=== PATIENT | female | born 1960 | race African-American/Black ===

== ENCOUNTER 2017-08-06 05:42 | Inpatient (IN) ==
[2017-08-04 09:25] LABS: Basophils % 0.5 % (0.0-0.8); Eosinophils # 0.1 10*3/uL (0.0-0.87); Eosinophils % 2.3 % (0.00-10.9); Hematocrit 40.2 VOL% (35.7-47.0); Hemoglobin 13.7 GM/DL (12.0-16.0); Immature Granulocytes % 0.3 %; Immature Granulocytes Absolute 0.01 #; Lymphocytes # 1.2 10*3/uL (1.4-4.0); Lymphocytes % 29.8 % (21.3-54.2); Mean Corpuscular HGB Conc 34.1 GM/DL (32-36); Mean Corpuscular Hemoglobin 29 PG (27-34); Mean Corpuscular Volume 84.8 FL (87-102); Mean Platelet Volume 9.5 FL (9.6-12.0); Monocytes # 0.6 10*3/uL (0.11-0.8); Neutrophils # 2.1 10*3/uL (1.4-7.4); Neutrophils % 53.1 % (38.7-73.9); Platelet Count 249 T/CUMM (130-400); Red Blood Count 4.74 MC/CUMM (3.8-5.5); Red Cell Distribution Width 12.1 % (9.3-17.3); White Blood Count 3.9 T/CUMM (4-12)
[2017-08-04 09:35] LABS: PT Patient Result 10.6 SECS; Partial Thromboplastin Time 26.8 SECS (0-40)
[2017-08-04 09:38] LABS: Apearance,Urine CLOUDY (Clear); Bilirubin,Urine Negative (Negative); Blood, Urine Negative (Negative); Glucose,Urine (UA) Negative (Negative); Ketones,Urine Negative (Negative); Mucus,Urine Many /LPF (Occasional); Nitrite,Urine Negative (Negative); Protein,Urine Negative; Squamous Epithelial Cell,Urine Few /HPF (0-10); Urine Color Yellow (Yellow); Urine Specific Gravity 1.026 (1.001-1.035); Urine Urobilinogen < 2.0 EU/DL (0.2-1.0); WBC,Urine 2 /HPF (0-6)
[2017-08-04 10:00] LABS: Calcium 8.9 MG/DL (8.5-10.1); Osmolality,Calculated 279.4 MOS/KG (273-304); Potassium 3.7 MMOL/L (3.5-5.1)
--- NOTE | 2017-08-04 10:14 | Order Completion Report ---
See report scanned to EMR
--- NOTE | 2017-08-04 10:42 | XRay Report ---
Exam: XR chest 2V Date: 08/04/2017 9:07 AM Indication: Respiratory Preoperative evaluation of the chest Comparison: 08/24/2015 Technical: PA lateral Findings: The heart is normal in size. Minimal vascular plaque in the aorta. No obvious infiltrates or effusions present. Mediastinum and bony structures reveal no acute findings. Impression: 1. No acute cardiopulmonary pathology radiographically with underlying ASVD. PROCEDURE INTERPRETED AT [facility] DEPARTMENT OF RADIOLOGY Final Report Signed by: Dr. Shun Partida
[~2017-08-06 05:42] MED LIST: ACETAMINOPHEN INJ 1,000 MG in PREMIX 1 EACH IV ONE; BUPIVACAINE LIPOSOMAL 20 ML/266 MG VIAL MISC INJ ONE; CEFUROXIME INJ 1,500 MG in SODIUM CHLORIDE 0.9% 50 ML IV ONE; SODIUM CHLORIDE 0.9% 250 ML IV PRN
[2017-08-06] MEDS ORDERED: FAMOTIDINE 20 MG TABLET ONE (05:59)
[2017-08-06] MEDS ORDERED: LORazepam 1 MG TABLET ONE (05:59)
[2017-08-06] MEDS ORDERED: SODIUM CHLORIDE 0.9% 50 ML IV ONE (05:59)
[2017-08-06] MEDS ORDERED: CEFUROXIME 1,500 MG VIAL ONE (05:59)
[2017-08-06] MEDS ORDERED: ALBUTEROL 2.5 MG/3 ML NEB RESP TX ONE (06:00)
[2017-08-06] MEDS ORDERED: IPRATROPIUM 500 MCG/2.5 ML NEB RESP TX ONE (06:00)
[2017-08-06] MEDS ORDERED: FAMOTIDINE 20 MG TABLET PO ONE (06:00)
[2017-08-06] MEDS ORDERED: LORazepam 1 MG TABLET PO ONE (06:00)
[2017-08-06] MEDS ORDERED: TISSUE ADHESIVE 1 EACH APPLICATOR TOP ONE (06:10)
[2017-08-06] MEDS ORDERED: BUPIVACAINE LIPOSOMAL 20 ML/266 MG VIAL ONE (06:11)
[2017-08-06] MEDS ORDERED: LACTATED RINGERS 1,000 ML IV SCH ×2 (06:30→11:30)
[2017-08-06 08:20] LABS: ABG HCO3 25.3 MMOL/L (20-26); ABG Oxygen Saturation 99.3 % (95-100); ABG PCO2 38.1 MM HG (35-48); ABG PH 7.428 (7.35-7.45); ABG TCO2 22.5 MMOL/L (23-27)
[2017-08-06] MEDS ORDERED: hydrALAZINE 20 MG/1 ML VIAL ONE (10:27)
[2017-08-06] MEDS ORDERED: HYDROmorphone 2 MG/1 ML VIAL ONE (10:34)
--- NOTE | 2017-08-06 10:48 | Anesthesia Post-Op ---
Anesthesia Post OP - Post Ansesthetic Evaluation Patient seen in post op: Yes Resp: within normal limits CV: within normal limits Mental: within normal limits Temp: within normal limits Rhlo-Ni-Sgfykmxzh: within normal limits Nausea and Vomiting: within normal limits Pain: within normal limits
[2017-08-06] MEDS ORDERED: SEVOFLURANE 1 UNIT/15 MINUTE INH ONE (10:51)
[2017-08-06] MEDS ORDERED: MIDAZOLAM 2 MG/2 ML VIAL ONE (10:51)
[2017-08-06] MEDS ORDERED: PROPOFOL 200 MG/20 ML VIAL IV ONE (10:51)
[2017-08-06] MEDS ORDERED: DEXAMETHASONE 20 MG/5 ML VIAL ONE (10:52)
[2017-08-06] MEDS ORDERED: fentaNYL 100 MCG/2 ML VIAL ONE (10:52)
[2017-08-06] MEDS ORDERED: VECURONIUM 10 MG VIAL IV ONE (10:52)
[2017-08-06] MEDS ORDERED: GLYCOPYRROLATE 0.4 MG/2 ML VIAL ONE ×2 (10:52)
[2017-08-06] MEDS ORDERED: ACETAMINOPHEN 1,000 MG/100 ML VIAL IV ONE (10:52)
[2017-08-06] MEDS ORDERED: NEOSTIGMINE 10 MG/10 ML VIAL ONE (10:52)
[2017-08-06] MEDS ORDERED: ROCURONIUM 100 MG/10 ML VIAL IV ONE (10:53)
--- NOTE | 2017-08-06 11:11 | XRay Report ---
Portable chest Date: 08/06/2017 Clinical history: Postop thoracotomy Comparison: 08/04/2017 Technique: Portable AP sitting chest Findings: The heart is normal in size with calcification in the aortic knob. Interval left thoracotomy with metallic clips at the level of the left hilum. Left chest tube with tip at left lung apex. No significant pneumothorax is identified. Progressive atelectasis in the lungs with minimal subcutaneous emphysema. Insertion of right IJ CVP line with tip in right atrium. Impression: Interval left thoracotomy with chest tube projecting in the left lung apex. No significant pneumothorax identified with progressive atelectasis in the lungs and minimal subcutaneous emphysema. PROCEDURE INTERPRETED AT [facility] DEPARTMENT OF RADIOLOGY Final Report Signed by: Dr. Eleonora Latif
[2017-08-06] MEDS ORDERED: ONDANSETRON 4 MG/2 ML VIAL IV PRN (11:16)
[2017-08-06] MEDS ORDERED: HYDROmorphone 2 MG/1 ML VIAL IV PRN (11:16)
[2017-08-06 12:07] LABS: ABG Base Excess -1.4 MMOL/L (-2.5-2.5); ABG HCO3 23.2 MMOL/L (20-26); ABG Oxygen Saturation 98.9 % (95-100); ABG PH 7.351 (7.35-7.45); ABG TCO2 21.6 MMOL/L (23-27)
[2017-08-06 12:11] LABS: Basophils % 0.1 % (0.0-0.8); Hemoglobin 12.6 GM/DL (12.0-16.0); Immature Granulocytes % 0.6 %; Immature Granulocytes Absolute 0.06 #; Lymphocytes # 0.8 10*3/uL (1.4-4.0); Lymphocytes % 7.7 % (21.3-54.2); Mean Corpuscular HGB Conc 34.1 GM/DL (32-36); Mean Corpuscular Hemoglobin 29 PG (27-34); Mean Corpuscular Volume 84.5 FL (87-102); Mean Platelet Volume 9.3 FL (9.6-12.0); Monocytes # 0.2 10*3/uL (0.11-0.8); Monocytes % 2.3 % (1.7-12.7); Neutrophils # 9.4 10*3/uL (1.4-7.4); Neutrophils % 89.3 % (38.7-73.9); Platelet Count 210 T/CUMM (130-400); Red Blood Count 4.38 MC/CUMM (3.8-5.5); Red Cell Distribution Width 12.2 % (9.3-17.3); White Blood Count 10.5 T/CUMM (4-12)
[2017-08-06 12:34] LABS: Calcium 7.7 MG/DL (8.5-10.1); Osmolality,Calculated 277.8 MOS/KG (273-304); Potassium 3.5 MMOL/L (3.5-5.1)
[2017-08-06] MEDS ORDERED: INFLUENZA VIRUS VACCINE 0.5 ML SYRINGE IM ONE (12:47)
--- NOTE | 2017-08-06 12:58 | Operative Note ---
Date of procedure: 08/06/17 Pre-op diagnosis: Left upper lobe lung lesion highly suspicious for cancer Post-op diagnosis: same Procedure: Procedure: 1. Bronchoscopy 2. left video-assisted thoracoscopy 3. Injection of liposomal bupivacaine with intercostal nerve blocks levels 2, 3 , 4, 5, 6, 7, 8 4. left upper lobectomy Findings: This is a 56-year-old female who was having cough. During the workup she was found to have left upper lobe lesion. A PET scan showed this lesion to be avid for FDG. I reviewed this PET scan with the patient in details and explained that her options would be to do a needle biopsy with the possibility of false- negative results, to wait and repeat imaging or to obtain tissue diagnosis surgically or to do lobectomy for definitive diagnosis and management. The patient and elected to proceed with full lobectomy as a definitive diagnosis and management option. VATS left upper lobectomy was performed without any problems. I noted the area of puckering of the lesion to be deep in the parenchyma. Details of the procedure: The patient was brought into the lower placed supine on the OR table and general endotracheal anesthesia was induced without without any problems. Antibiotics were given. Time out was performed The neck and chest were prepped and draped in the usual sterile fashion. The patient was turned and the chest was prepared and draped in sterile fashion. an incision was made over the eighth rib and space was entered bluntly. Survey of the chest didn't show any obvious lesions other than the left upper lobe. The inferior pulmonary ligament was taken down and dissected the hilum all around the lung. The left superior pulmonary vein was identified and encircled with silk stitch. Was created and I used a white load stapler to resect the pulmonary vein. Care was taken to preserve the left lower lobe vein. After that we proceeded with identifying the apical anterior artery. Dissection was carried around the artery. After circling the artery successfully I dissected it using white load. I after that identified the interlobar artery and finished the fissure using linear tissue tate. This was carried all the way down. After that the bronchus was identified and it was tied using load stapler. Another branch of the pulmonary artery was also identified and another white load was used to resect that. The lobe was then handed over after complete resection and then turned my attention to completion of lymph node dissection.. The patient tolerated the procedure well hemostasis was achieved and 1 chest tube were inserted without any problems. The left lower lobes were inflated successfully without any problems. There was no air leak. The patient was extubated and moved to PACU in good condition. Anesthesia: JACKIE Surgeon / Physician: Christopher Cronin Estimated blood loss: other (50) Specimens: other (Left upper lobe with lobar lymph nodes) Condition: stable Disposition: PACU Results - Labs CBC & BMP: 08/06/17 12:00 08/06/17 12:00 Discharge Plan - Discharge Medications No Action Hydroxychloroquine [Plaquenil] 200 mg PO QOTHER DAY Estradiol Tab [Estrace Tab] 1 mg PO DAILY Temazepam [Restoril] 15 mg PO BEDTIME Ranitidine Tab [Zantac Tab] 150 mg PO DAILY Losartan [Cozaar] 50 mg PO DAILY Montelukast Tab [Singulair Tab] 10 mg PO BEDTIME Citalopram [CeleXA] 20 mg PO DAILY Omeprazole [Prilosec] 20 mg PO DIRECTED PRN PRN Reason: Reflux Albuterol Sulfate [Proair HFA] 2 puff INH Q4H PRN PRN Reason: Shortness Of Breath/Wheezing Codeine Phosphate/Guaifenesin [Guaifenesin-Codeine Syrup] 10 ml PO DIRECTED PRN PRN Reason: Cough predniSONE TAB [PredniSONE] 10 mg PO QOTHER DAY Calcium (Carb)/Vit D 500-200 [Oscal 500 + D] 1 tablet PO BID Flunisolide [Aerospan] 5.1 gm IH DAILY - Follow Up or Referral - Forms/Instructions
[2017-08-06] MEDS: KETOROLAC 15 MG/1 ML VIAL IV SCH ×3 (13:40→21:09)
[2017-08-06] MEDS: POTASSIUM CHLORIDE INJ 10 MEQ in SODIUM CHLORIDE 0.45% 1,000 ML IV SCH (15:14)
[2017-08-06] MEDS: GABAPENTIN 100 MG CAPSULE PO SCH ×2 (15:16→21:09)
[2017-08-06] MEDS: ACETAMINOPHEN INJ 1,000 MG in PREMIX 1 EACH IV SCH ×2 (18:00→21:08)
[2017-08-06] MEDS: CEFUROXIME INJ 1,500 MG in SODIUM CHLORIDE 0.9% 100 ML IV SCH (18:20)
[2017-08-06] MEDS ORDERED: NALOXONE 0.4 MG/ML VIAL IV PRN (22:03)
[2017-08-06] MEDS: HYDROmorphone PCA 30 MG/30 ML SYRINGE IV SCH (23:15)
[2017-08-07] MEDS: POTASSIUM CHLORIDE INJ 10 MEQ in SODIUM CHLORIDE 0.45% 1,000 ML IV SCH ×3 (00:18→14:38)
[2017-08-07] MEDS: KETOROLAC 15 MG/1 ML VIAL IV SCH ×4 (04:08→21:54)
[2017-08-07] MEDS: ACETAMINOPHEN 500 MG TABLET PO SCH ×5 (04:08→21:54)
[2017-08-07] MEDS: ENOXAPARIN 40 MG/0.4 ML SYRINGE SUBCUT SCH (04:08)
[2017-08-07 04:25] LABS: Basophils % 0.1 % (0.0-0.8); Hematocrit 32.3 VOL% (35.7-47.0); Hemoglobin 11.2 GM/DL (12.0-16.0); Immature Granulocytes % 0.3 %; Immature Granulocytes Absolute 0.04 #; Lymphocytes % 7.2 % (21.3-54.2); Mean Corpuscular HGB Conc 34.7 GM/DL (32-36); Mean Corpuscular Hemoglobin 30 PG (27-34); Mean Platelet Volume 9.3 FL (9.6-12.0); Monocytes # 1.1 10*3/uL (0.11-0.8); Monocytes % 7.9 % (1.7-12.7); Neutrophils # 11.9 10*3/uL (1.4-7.4); Neutrophils % 84.5 % (38.7-73.9); Platelet Count 193 T/CUMM (130-400); Red Cell Distribution Width 12.3 % (9.3-17.3); White Blood Count 14.1 T/CUMM (4-12)
[2017-08-07 04:48] LABS: Calcium 7.3 MG/DL (8.5-10.1); Osmolality,Calculated 275.7 MOS/KG (273-304); Potassium 4.2 MMOL/L (3.5-5.1)
[2017-08-07] MEDS: CEFUROXIME INJ 1,500 MG in SODIUM CHLORIDE 0.9% 100 ML IV SCH (06:21)
--- NOTE | 2017-08-07 08:37 | XRay Report ---
XR chest 2V Date: 08/07/2017 4:00 AM History: Left upper lobectomy Comparison: 08/06/2017 Technique: PA and lateral chest Findings: The heart is normal in size with calcification in the aortic knob. Stable right IJ CVP line with minimal retraction of the left chest tube. Recent left upper lobectomy with no significant pneumothorax. Residual atelectasis. Stable mediastinum and osseous structures. Impression: Recent left upper lobectomy with minimal retraction of the left chest tube with no significant pneumothorax. Persistent subsegmental atelectasis. PROCEDURE INTERPRETED AT [facility] DEPARTMENT OF RADIOLOGY Final Report Signed by: Dr. Eleonora Latif
[2017-08-07] MEDS: PANTOPRAZOLE 40 MG VIAL IV SCH (08:45)
[2017-08-07] MEDS: GABAPENTIN 100 MG CAPSULE PO SCH ×3 (08:45→21:53)
[2017-08-07] MEDS ORDERED: traMADol 50 MG TABLET PO PRN (09:59)
[2017-08-07] MEDS: ONDANSETRON 4 MG/2 ML VIAL IV PRN ×2 (14:12→17:49)
[2017-08-07] MEDS: SODIUM CHLORIDE 0.9% 1,000 ML IV SCH (14:38)
[2017-08-08] MEDS: ACETAMINOPHEN 500 MG TABLET PO SCH ×4 (04:04→21:02)
[2017-08-08] MEDS: ENOXAPARIN 40 MG/0.4 ML SYRINGE SUBCUT SCH (05:14)
[2017-08-08] MEDS: KETOROLAC 15 MG/1 ML VIAL IV SCH (05:14)
[2017-08-08 05:31] LABS: Basophils % 0.1 % (0.0-0.8); Eosinophils # 0.1 10*3/uL (0.0-0.87); Eosinophils % 0.9 % (0.00-10.9); Hematocrit 32.5 VOL% (35.7-47.0); Hemoglobin 10.9 GM/DL (12.0-16.0); Immature Granulocytes % 0.4 %; Immature Granulocytes Absolute 0.03 #; Lymphocytes # 1.3 10*3/uL (1.4-4.0); Lymphocytes % 16.9 % (21.3-54.2); Mean Corpuscular HGB Conc 33.5 GM/DL (32-36); Mean Corpuscular Hemoglobin 29 PG (27-34); Mean Corpuscular Volume 86.9 FL (87-102); Mean Platelet Volume 9.7 FL (9.6-12.0); Monocytes # 0.7 10*3/uL (0.11-0.8); Monocytes % 8.5 % (1.7-12.7); Neutrophils # 5.7 10*3/uL (1.4-7.4); Neutrophils % 73.2 % (38.7-73.9); Platelet Count 178 T/CUMM (130-400); Red Blood Count 3.74 MC/CUMM (3.8-5.5); Red Cell Distribution Width 12.8 % (9.3-17.3); White Blood Count 7.7 T/CUMM (4-12)
[2017-08-08 05:46] LABS: Calcium 7.3 MG/DL (8.5-10.1); Osmolality,Calculated 275.5 MOS/KG (273-304); Potassium 4.2 MMOL/L (3.5-5.1)
[2017-08-08] MEDS: ONDANSETRON 4 MG/2 ML VIAL IV PRN ×2 (07:14→18:28)
[2017-08-08] MEDS: HYDROmorphone PCA 30 MG/30 ML SYRINGE IV SCH (07:14)
[2017-08-08] MEDS: PANTOPRAZOLE 40 MG VIAL IV SCH (09:26)
[2017-08-08] MEDS: GABAPENTIN 100 MG CAPSULE PO SCH ×3 (09:26→21:02)
--- NOTE | 2017-08-08 09:26 | XRay Report ---
XR chest 2V Indication: Postsurgical respiratory evaluation Comparison: 07 August 2017 Findings: The heart and mediastinum are stable in size and configuration. Left-sided chest tube is unchanged in position. The internal jugular catheter has been removed. The pulmonary vascularity is normal in caliber. Linear mid lung densities are similar to previous exam. No other lung infiltrates, effusions, pneumothorax or other abnormality is demonstrated. Impression: Removal of right internal jugular catheter. No other interval changes. PROCEDURE INTERPRETED AT [facility] DEPARTMENT OF RADIOLOGY Final Report Signed by: Dr. Harshil Alas
[2017-08-08] MEDS: SODIUM CHLORIDE 0.9% 1,000 ML IV SCH (15:04)
--- NOTE | 2017-08-08 15:04 | Cardiothoracic Progress Note ---
Assessment and Plan - Time spent with patient Time spent with patient: Greater than 30 minutes (1) Lesion of lung Status: Acute Assessment and plan: Postoperative day 2 status post VATS left upper lobectomy. The patient has been doing very well. She denies any pain. She has been tolerating her diet. She is ambulating well without any problems. There was no air leak and minimal chest tube output. The chest tube has been removed and the chest x-ray post removal looks within normal limits with the left lower lobe completely expanded to fill the chest. The patient would likely be discharged tomorrow. Current Visit: Yes Exam (Progress Note) - Constitutional Vitals: Period Temp Pulse Resp BP Sys/Evans Pulse Ox Last 24 Hr 96.8 F-98.3 F 60-72 14-20 119-146/60-85 96-99 Result/EKG - Labs CBC & BMP: 08/08/17 05:23 08/08/17 05:23 Labs: Laboratory Results - last 24 hr 08/08/17 08/08/17 05:23 05:23 WBC 7.7 D RBC 3.74 L Hgb 10.9 L Hct 32.5 L MCV 86.9 L MCH 29 MCHC 33.5 RDW 12.8 Plt Count 178 MPV 9.7 Neut % (Auto) 73.2 Lymph % (Auto) 16.9 L Stone % (Auto) 8.5 Eos % (Auto) 0.9 Baso % (Auto) 0.1 Neut # (Auto) 5.7 Lymph # (Auto) 1.3 L Stone # (Auto) 0.7 Eos # (Auto) 0.1 Baso # (Auto) 0.0 Immature Gran % 0.4 Nucleated RBC % 0.0 Immature Gran # 0.03 Nucleated RBCs # 0.00 Immature Plt Fraction 0.0 Sodium 139 Potassium 4.2 Chloride 108 H Carbon Dioxide 28 Anion Gap 7.2 BUN 13 Creatinine 0.90 GFR Calculation 90 BUN/Creatinine Ratio 14.00 Glucose 88 Calculated Osmolality 275.5 Calcium 7.3 L
--- NOTE | 2017-08-08 15:08 | XRay Report ---
XR chest 2V Indication: Chest tube removal Comparison: 08 August 2017 at 6:59 AM Findings: The heart and mediastinum are normal in size and configuration. Left-sided chest tube is been removed. No report pneumothorax is identified The pulmonary vascularity is normal in caliber. No lung infiltrates, effusions or other abnormality is demonstrated. Impression: Left-sided chest tube has been removed. No other changes seen. PROCEDURE INTERPRETED AT [facility] DEPARTMENT OF RADIOLOGY Final Report Signed by: Dr. Harshil Alas
--- NOTE | 2017-08-08 15:16 | Discharge Summary ---
Hospital Course - Hospital Course Hospital Course: The patient came into the preop area was evaluated and was noted to be fit for surgery patient. The patient was then taken to the OR and a VATS left upper lobectomy was performed without any problems. The patient was then admitted to the ICU for close observation. She did very well postop day 0. Postoperative day 1 she was ready out of bed tolerating her diet and pain was well- controlled. She was transferred to telemetry. Chest tubes remain to waterseal. Postoperative day 2 the patient was doing very well with no air leak and minimal chest tube output. The chest tube was removed. Chest x-ray showed complete expansion of the left lower lobe to fill the left pleural cavity. Postoperative day 3 the patient was ready for discharge. - Time spent with patient Time with patient DS: Greater than 30 minutes Diagnosis - Discharge Diagnosis (1) Lesion of lung Status: Acute Discharge Plan - Discharge Data Disposition: Disch To Home/Self Care Condition at Discharge: Stable Discharge Diet: advance to your usual diet Activity: resume usual activities as tolerated Weight Bearing at Discharge: full weight bearing, weight bear as tolerated Driving: no restrictions Contact your physician if you experience:: fever over 101, Difficulty voiding, Redness or swelling, Nausea/Vomiting, Shortness of breath, Bleeding - Discharge Medications New Acetaminophen Tab [Tylenol Tab] 1,000 mg PO Q6H #60 tablet Celecoxib [Celebrex] 200 mg PO BID #60 capsule Gabapentin Cap/Tab [Neurontin Cap/Tab] 100 mg PO TID #60 capsule HYDROcodone/ACETAMIN 5-325 [[place] 5-325] 1 tablet PO Q4H PRN tablet PRN Reason: Pain Moderate (4-7) traMADol TAB [Ultram] 50 mg PO Q6H PRN #30 tablet PRN Reason: Pain Mild (1-3) Continue Hydroxychloroquine [Plaquenil] 200 mg PO QOTHER DAY Estradiol Tab [Estrace Tab] 1 mg PO DAILY Temazepam [Restoril] 15 mg PO BEDTIME Ranitidine Tab [Zantac Tab] 150 mg PO DAILY Losartan [Cozaar] 50 mg PO DAILY Montelukast Tab [Singulair Tab] 10 mg PO BEDTIME Citalopram [CeleXA] 20 mg PO DAILY Omeprazole [Prilosec] 20 mg PO DIRECTED PRN PRN Reason: Reflux Albuterol Sulfate [Proair HFA] 2 puff INH Q4H PRN PRN Reason: Shortness Of Breath/Wheezing Codeine Phosphate/Guaifenesin [Guaifenesin-Codeine Syrup] 10 ml PO DIRECTED PRN PRN Reason: Cough predniSONE TAB [PredniSONE] 10 mg PO QOTHER DAY Calcium (Carb)/Vit D 500-200 [Oscal 500 + D] 1 tablet PO BID Flunisolide [Aerospan] 5.1 gm IH DAILY - Follow Up or Referral - Forms/Instructions Exam - Constitutional Vitals: Period Temp Pulse Resp BP Sys/Evans Pulse Ox Last 24 Hr 96.8 F-98.3 F 60-72 14-20 119-146/60-85 96-99 Discharge Results Procedures and tests throughout hospitalization: Pending Orders 08/04/17 09:19 Fresh Frozen Plasma Routine Red Blood Cells Leuko Red Routine Single Donor Platelets Routine Type and Screen Routine 08/09/17 04:00 XR chest 2V IN AM Basic Metabolic Panel IN AM Comp Blood Count Auto Diff IN AM Labs on day of discharge: Labs from last 24 hours 08/08/17 08/08/17 05:23 05:23 WBC 7.7 D RBC 3.74 L Hgb 10.9 L Hct 32.5 L MCV 86.9 L MCH 29 MCHC 33.5 RDW 12.8 Plt Count 178 MPV 9.7 Neut % (Auto) 73.2 Lymph % (Auto) 16.9 L [place] % (Auto) 8.5 Eos % (Auto) 0.9 Baso % (Auto) 0.1 Neut # (Auto) 5.7 Lymph # (Auto) 1.3 L [place] # (Auto) 0.7 Eos # (Auto) 0.1 Baso # (Auto) 0.0 Immature Gran % 0.4 Nucleated RBC % 0.0 Immature Gran # 0.03 Nucleated RBCs # 0.00 Immature Plt Fraction 0.0 Sodium 139 Potassium 4.2 Chloride 108 H Carbon Dioxide 28 Anion Gap 7.2 BUN 13 Creatinine 0.90 GFR Calculation 90 BUN/Creatinine Ratio 14.00 Glucose 88 Calculated Osmolality 275.5 Calcium 7.3 L DS: Provider Date of admission: 08/06/17 05:42 Primary care physician: Deyanira Shields DO Attending physician on admission: Christopher Cronin Discharging clinician: Christopher El-Ashry Expected date of discharge: 08/09/17
[2017-08-08] MEDS: CELECOXIB 200 MG CAPSULE PO SCH (21:02)
[2017-08-09] MEDS: ACETAMINOPHEN 500 MG TABLET PO SCH ×2 (04:14→10:44)
[2017-08-09] MEDS: ENOXAPARIN 40 MG/0.4 ML SYRINGE SUBCUT SCH (04:30)
[2017-08-09 05:13] LABS: Basophils % 0.2 % (0.0-0.8); Eosinophils # 0.2 10*3/uL (0.0-0.87); Eosinophils % 2.6 % (0.00-10.9); Hematocrit 32.6 VOL% (35.7-47.0); Immature Granulocytes % 0.2 %; Immature Granulocytes Absolute 0.01 #; Lymphocytes # 1.5 10*3/uL (1.4-4.0); Lymphocytes % 25.1 % (21.3-54.2); Mean Corpuscular HGB Conc 33.7 GM/DL (32-36); Mean Corpuscular Hemoglobin 29 PG (27-34); Mean Corpuscular Volume 85.6 FL (87-102); Mean Platelet Volume 9.9 FL (9.6-12.0); Monocytes # 0.6 10*3/uL (0.11-0.8); Monocytes % 11.1 % (1.7-12.7); Neutrophils # 3.5 10*3/uL (1.4-7.4); Neutrophils % 60.8 % (38.7-73.9); Platelet Count 179 T/CUMM (130-400); Red Blood Count 3.81 MC/CUMM (3.8-5.5); Red Cell Distribution Width 12.6 % (9.3-17.3); White Blood Count 5.8 T/CUMM (4-12)
[2017-08-09 05:43] LABS: Calcium 7.9 MG/DL (8.5-10.1); Potassium 3.8 MMOL/L (3.5-5.1)
[2017-08-09 08:10] VITALS: BP 154/95
[2017-08-09] MEDS: GABAPENTIN 100 MG CAPSULE PO SCH (08:46)
[2017-08-09] MEDS: CELECOXIB 200 MG CAPSULE PO SCH (08:47)
[2017-08-09] MEDS: PANTOPRAZOLE 40 MG VIAL IV SCH (08:48)
--- NOTE | 2017-08-09 09:01 | XRay Report ---
XR chest 2V Indication: Left upper lobectomy Comparison: 08 August 2017 Findings: The heart and mediastinum are stable in size and configuration with left upper lobectomy changes. The pulmonary vascularity is normal in caliber. No lung infiltrates, effusions, pneumothorax or other abnormality is demonstrated. Impression: No acute findings or significant changes. PROCEDURE INTERPRETED AT [facility] DEPARTMENT OF RADIOLOGY Final Report Signed by: Dr. Harshil Alas
--- NOTE | 2017-08-11 12:38 | Physician Query Form ---
CLICK EDIT DOCUMENT TO SELECT QUERY ANSWER --> OK --> SIGN Lyudmila Richards RN Clinical Clinical Quality Assurance Specialist W) [phone] (f) [phone] [email or web address] PROVIDERS: Make your selection(s) from the choices in EACH section by typing an "x" and enter comments in the comment section. Please use your independent medical judgment in providing your response. This request does not imply that any particular answer is desired or expected. CLINICAL INDICATORS: (Providers should not edit this section) Based on documentation of Creatinine from 1.2 to 0.8. GFR form 64 to 104. Monitored with serial lab checks. Treated with NS infusion. Clarify which of the following most accurately represents the patient's renal status: ( ) Acute kidney injury (non-traumatic) ( ) Acute renal failure ( ) Acute renal failure with underlying Chronic Kidney Disease (CKD) - please provide stage below ( ) Acute renal failure with pathological renal lesion ( ) Acute renal failure with necrosis ( ) tubular ( ) medullary ( ) cortical ( ) CKD - please provide stage below ( ) End Stage Renal Disease ( ) Acute interstitial nephritis ( ) Hepatorenal syndrome ( x) Other, please specify: There is no renal failure, creatinine remained below 1.3 ( ) Clinically unable to determine Chronic Kidney Disease Stages Source: National Kidney Disease Foundation ( ) Stage I (eGFR > or = 90) ( ) Stage II (eGFR 60 - 89) ( ) Stage III (eGFR 30 - 59) ( ) Stage IV (eGFR 15 - 29) ( ) Stage V (eGFR < 15 or dialysis) COMMENTS: PLEASE ALSO DOCUMENT RESPONSE IN PROGRESS NOTES AND/OR DISCHARGE SUMMARY Use of terms such as suspected, likely, or probable (associated with a specific diagnosis that is being evaluated, monitored, or treated as if it exists) are acceptable and can be restated in the discharge summary if not ruled out. MTDD
--- NOTE | 2017-08-11 19:17 | Pathology Report from [facility] ---
[facility] ACCESSION # : [id number] PATIENT NAME : Kathie Mccartney ORDERING DR : Christopher Cronin MD CLINICAL HX: Left lung upper lobe lesion POST-OP DX: Same SPECIMEN INFO: Left lung upper lobe GROSS DESCRIPTION: Received fresh labeled with the patients name KATHIE MCCARTNEY and consists of a left upper lung lobe which measures 14.5 x 10.0 x 3.0 cm. The pleural surface maroon-pink and smooth with a focal area of puckering (0.2 x 0.3 cm). Sectioning reveals an ill-defined, uriarte-white lesion (2.8 x 1.6 cm) which grossly extends to the pleural surface and comes to within 4.0 cm of the bronchial margin. Remaining cut surfaces are spongy and hemorrhagic with no other masses or fibrinopurulent secretions noted. Sections submitted: bronchial and vascular margins, B thru E tumor, F lymph nodes. Additional sections of pleural puckering submitted on 08/07/17: R1-2. Additional section for candidate lymph nodes submitted 08/09/17: R3. DIAGNOSIS FOR KATHIE MCCARTNEY: #1 LUNG, LEFT UPPER LOBE, LOBECTOMY (Intact,14.5 x10 x 3 cm). TUMOR TYPE: Invasive adenocarcinoma, papillary predominant. Other subtypes present: acinar, micropapillary. HISTOLOGIC GRADE: G2: Moderately differentiated. TUMOR SIZE: 2.8 x 1.6 cm. TUMOR SITE: Left upper lobe. MARGINS: All margins uninvolved with carcinoma, nearest (bronchial) margin = 40 mm. FOCALITY: Unifocal VISCERAL PLEURAL INVASION: Present. LYMPHOVASCULAR INVASION: Indeterminate. TUMOR ASSOCIATED ATELECTASIS OR OBSTRUCTIVE PNEUMONITIS: Not present. DIRECT INVASION OF ADJACENT STRUCTURES: No adjacent structures present. TREATMENT EFFECT: No known presurgical therapy. LYMPH NODES: Number examined = 1; Number positive = 0. AJCC (2018) PATHOLOGIC STAGE: IB ([id number]). COLLECTED DATE: 08/06/2017 [facility] REPORT DATE: 08/11/2017 ELECTRONICALLY SIGNED BY: Estefany Ardon M.D. 08/11/2017 - 15:18:09 SRAVANI
== END 2017-08-09 11:45 | disposition home or self-care (01) | DRG 165 ==
LOC: N.SDSINP 05:42 → N.ICU 11:46 → N.TELES 08-07 14:33
PROVIDERS: ADMIT Thoracic Surgery (Cardiothoracic Vascular Surgery); ATTEND Thoracic Surgery (Cardiothoracic Vascular Surgery)